=== PATIENT | female | born 1985 | race Hispanic/Latino ===

== ENCOUNTER 2018-06-02 14:06 | Emergency (ER) | payer BC ==
[~2018-06-02] VITALS: Ht 160 cm; Wt 93.4 kg
== END 2018-06-02 16:19 | disposition home or self-care (01) ==
LOC: ER 14:06
DX: H92.01 Otalgia, right ear (principal); H61.21 Impacted cerumen, right ear; J01.00 Acute maxillary sinusitis, unspecified
CPT/HCPCS: 99283